=== PATIENT | male | born 1960 | race Caucasian/White ===

== ENCOUNTER 2021-07-27 06:38 | Day surgery (SDC) | payer MEDICARE, MEDICAID ==
[2021-07-27] MEDS ORDERED: Propofol 200 MG/20 ML SDV ONE (07:17)
[2021-07-27] MEDS ORDERED: fentaNYL 100 MCG/2 ML SDV ONE (07:17)
[2021-07-27] MEDS ORDERED: Midazolam 1 MG/ML 2 ML SDV ONE (07:17)
[2021-07-27] MEDS ORDERED: Sodium Chloride 0.9% 1,000 ML IV SCH (09:45)
--- NOTE | 2021-07-27 13:55 | OR ---
DATE OF PROCEDURE: 07/27/2021 SURGEON: Alpesh Cha MD PROCEDURE: Colonoscopy. FINDINGS: 1. Sigmoid colon polyp approximately 1 cm, completely removed using hot snare wire device. 2. Sigmoid colon polyp #2, approximately 1 cm, completely removed using endoscopic mucosal resection. 3. Diverticulosis, mild, mostly limited to sigmoid colon without evidence of diverticulitis or bleeding. COMPLICATION: None. WASH DRILLER HELPER: None. ANESTHESIA: MAC. PREOPERATIVE DIAGNOSIS: Screening colonoscopy. POSTOPERATIVE DIAGNOSIS: Screening colonoscopy. RISKS: Risks, benefits, alternatives, and limitations including, but not limited to infection, bleeding, perforation, false positives, false negatives were explained to the patient and he wished to proceed. PROCEDURE IN DETAIL: The patient was placed in left lateral decubitus position. Digital rectal exam was performed without abnormality. Scope was introduced and advanced atraumatically to the appendiceal orifice. A photo was taken of this. Scope was brought back to the ascending, transverse, descending colon, and retroflexed. No evidence of old or new blood. The patient did have some diverticulosis that was described as mild and without evidence of diverticulitis or bleeding. The first sigmoid colon polyp was identified and completely removed using hot snare wire device. No abnormal bleeding was noted after this. The second was elevated using classic EMR techniques including injection with normal saline in all 4 quadrants with subsequent hot wire excision. No abnormalities on retroflexion. Greater than 8 minutes was spent removing the scope. The prep was acceptable, approximately 90% of the luminal surface could be seen. The patient tolerated the procedure well. Alpesh Cha MD /[id number]
== END 2021-07-27 09:40 | disposition other institution (70) ==
LOC: JP.SDS 06:38
PROVIDERS: ATTEND Surgery
DX: Z12.11 Encounter for screening for malignant neoplasm of colon (principal); D12.5 Benign neoplasm of sigmoid colon; K57.30 Diverticulosis of large intestine without perforation or abscess without bleeding; I50.9 Heart failure, unspecified; N18.9 Chronic kidney disease, unspecified; E11.22 Type 2 diabetes mellitus with diabetic chronic kidney disease
CPT/HCPCS: J2250; J2704; J3010; J7030

== ENCOUNTER 2022-02-12 15:32 | Emergency (ER) | payer MEDICARE, MEDICAID ==
[2022-02-12] MEDS ORDERED: Sodium Chloride 0.9% 500 ML IV SCH (16:30)
[2022-02-12 16:59] LABS: TROPONIN I HIGH SENSITIVITY 10.6 pg/mL (<=60.3)
== END 2022-02-12 17:19 ==
LOC: JP.ED 15:32
DX: R53.1 Weakness (principal); E11.42 Type 2 diabetes mellitus with diabetic polyneuropathy; E11.649 Type 2 diabetes mellitus with hypoglycemia without coma; E11.22 Type 2 diabetes mellitus with diabetic chronic kidney disease; N18.4 Chronic kidney disease, stage 4 (severe); E86.0 Dehydration; E78.00 Pure hypercholesterolemia, unspecified; K21.9 Gastro-esophageal reflux disease without esophagitis; Z88.8 Allergy status to other drugs, medicaments and biological substances; Z91.048 Other nonmedicinal substance allergy status; Z79.899 Other long term (current) drug therapy
CPT/HCPCS: 36415; 80048; 84484; 85027; 99285; J7030; 99283

== ENCOUNTER 2022-02-22 14:30 | Emergency (ER) | payer MEDICARE, MEDICAID | END 2022-02-22 15:48 | LOC: JP.ED 14:30 | DX: I13.0 Hypertensive heart and chronic kidney disease with heart failure and stage 1 through stage 4 chronic kidney disease, or unspecified chronic kidney disease (principal); E78.00 Pure hypercholesterolemia, unspecified; K21.9 Gastro-esophageal reflux disease without esophagitis; I50.9 Heart failure, unspecified; E11.22 Type 2 diabetes mellitus with diabetic chronic kidney disease; N18.4 Chronic kidney disease, stage 4 (severe); D63.1 Anemia in chronic kidney disease; E66.9 Obesity, unspecified; Z68.30 Body mass index [BMI] 30.0-30.9, adult; Z91.048 Other nonmedicinal substance allergy status; Z88.8 Allergy status to other drugs, medicaments and biological substances; Z79.899 Other long term (current) drug therapy | CPT/HCPCS: 99282; 99285 ==

== ENCOUNTER 2022-02-23 08:48 | Inpatient (IN) | payer OTHER, MEDICARE, MEDICAID ==
[2022-02-23] MEDS ORDERED: Ketorolac 30 MG/ML SDV IM ONE (09:03)
[2022-02-23] MEDS ORDERED: HYDROmorphone 1 MG/ML Syringe IM ONE (09:49)
[2022-02-23] MEDS ORDERED: Sodium Chloride 0.9% 10 ML Syringe FLUSH PRN ×2 (10:58→13:46)
[2022-02-23] MEDS ORDERED: HYDROmorphone 0.5 MG/0.5 ML Syringe IVPUSH ONE (12:04)
[2022-02-23] MEDS ORDERED: Midazolam 1 MG/ML 2 ML SDV ONE (13:18)
[2022-02-23] MEDS ORDERED: fentaNYL 100 MCG/2 ML SDV ONE (13:18)
[2022-02-23] MEDS ORDERED: Propofol 200 MG/20 ML SDV ONE ×2 (13:18→13:30)
[2022-02-23] MEDS ORDERED: DIVALPROEX SODIUM 500 MG PO SCH (13:46)
[2022-02-23] MEDS ORDERED: Glucose Gel 15 GM in 37.5 GM Tube PO PRN (13:46)
[2022-02-23] MEDS ORDERED: Non-Formulary Medication 1 Each (Olanzapine [Olanzapine] 10 MG Tablet) PO PRN (13:46)
[2022-02-23] MEDS ORDERED: 50% Dextrose in Water 50 ML Syringe IV PRN (13:46)
[2022-02-23] MEDS ORDERED: Ondansetron 4 MG/2 ML SDV IV PRN (13:46)
[2022-02-23] MEDS ORDERED: Acetaminophen 325 MG Tab PO PRN (13:46)
[2022-02-23] MEDS ORDERED: OLANZapine 5 MG Tab PO PRN (14:54)
[2022-02-23] MEDS: Sodium Chloride 0.9% 1,000 ML IV SCH (15:15)
[2022-02-23] MEDS: HYDROmorphone 0.5 MG/0.5 ML Syringe IVPUSH PRN (15:17)
[2022-02-23] MEDS: Sodium Bicarbonate 650 MG Tab PO SCH ×2 (15:31→20:26)
[2022-02-23] MEDS ORDERED: Bupivacaine 0.5% 30 ML SDV ONE (16:35)
[2022-02-23] MEDS ORDERED: ceFAZolin 1 GM Vial ONE (17:28)
[2022-02-23] MEDS ORDERED: Sodium Chloride 0.9% 500 ML IV ONE (18:52)
[2022-02-23] MEDS: Topiramate 25 MG Tab PO SCH (20:25)
[2022-02-23] MEDS: OLANZapine 5 MG Tab PO SCH (20:26)
[2022-02-23] MEDS: atorvaSTATin 20 MG Tab PO SCH (20:26)
[2022-02-23] MEDS: Melatonin 3 MG Tab PO SCH (20:27)
[2022-02-23] MEDS: Acetaminophen 325 MG Tab PO SCH (20:32)
[2022-02-23] MEDS: Divalproex Sodium 250 MG Tab.ER PO SCH (20:33)
[2022-02-23] MEDS: traMADol 50 MG Tab PO PRN (20:33)
[2022-02-23] MEDS: Lidocaine 5% 700 MG Patch TOP SCH (20:34)
[2022-02-23] MEDS ORDERED: TOPIRAMATE 50 MG PO SCH (21:00)
[2022-02-23] MEDS ORDERED: Non-Formulary Medication 1 Each (Atorvastatin [Lipitor] 80 MG Tablet) PO SCH (21:00)
[2022-02-23] MEDS ORDERED: Non-Formulary Medication 1 Each (Melatonin [Melatonin] 10 MG Cap) PO SCH (21:00)
[2022-02-23] MEDS ORDERED: Non-Formulary Medication 1 Each (Olanzapine [Olanzapine] 15 MG Tablet) PO SCH (21:00)
[2022-02-23] MEDS: Insulin Lispro 100 Unit/ML 3 ML KwikPen SUBCUT SCH (22:31)
[2022-02-24] MEDS ORDERED: ceFAZolin 1 GM in Sodium Chloride 0.9% 50 ML IV SCH (01:00)
[2022-02-24] MEDS: Acetaminophen 325 MG Tab PO SCH ×4 (01:46→21:01)
[2022-02-24] MEDS: Sodium Chloride 0.9% 1,000 ML IV SCH (02:25)
[2022-02-24] MEDS: oxyCODONE 5 MG Tab PO PRN ×3 (07:32→21:09)
[2022-02-24] MEDS: Insulin Lispro 100 Unit/ML 3 ML KwikPen SUBCUT SCH ×4 (07:54→21:00)
[2022-02-24] MEDS: Docusate Sodium 100 MG Cap PO SCH (08:21)
[2022-02-24] MEDS: Citalopram 10 MG Tab PO SCH (08:21)
[2022-02-24] MEDS: Pantoprazole 40 MG Tab.CR PO SCH (08:21)
[2022-02-24] MEDS: Topiramate 25 MG Tab PO SCH ×2 (08:22→21:02)
[2022-02-24] MEDS: Magnesium Oxide 400 MG Tab PO SCH (08:22)
[2022-02-24] MEDS: Divalproex Sodium 250 MG Tab.ER PO SCH ×2 (08:22→21:01)
[2022-02-24] MEDS: Finasteride 5 MG Tab PO SCH (08:22)
[2022-02-24] MEDS: Sodium Bicarbonate 650 MG Tab PO SCH ×3 (08:22→21:03)
[2022-02-24] MEDS: OLANZapine 5 MG Tab PO SCH ×2 (08:23→21:04)
[2022-02-24] MEDS: Tamsulosin 0.4 MG Cap.ER PO SCH (08:26)
[2022-02-24] MEDS: ceFAZolin 1 GM in Premix Bag 1 BAG IV SCH ×2 (08:28→17:11)
[2022-02-24] MEDS ORDERED: Pneumococcal Polyvalent-23 Vaccine 0.5 ML SDV IM ONE (09:00)
[2022-02-24] MEDS ORDERED: Non-Formulary Medication 1 Each (Omeprazole [Omeprazole] 40 MG Cap.Cr) PO SCH (09:00)
[2022-02-24] MEDS ORDERED: Non-Formulary Medication 1 Each (Magnesium Oxide [Magnesium Oxide] 420 MG Tablet) PO SCH (09:00)
[2022-02-24] MEDS: Enoxaparin 30 MG/0.3 ML Syringe SUBCUT SCH (14:24)
[2022-02-24] MEDS: Nozin Nasal Sanitizer NASBOTH SCH ×2 (15:44→21:01)
[2022-02-24] MEDS: atorvaSTATin 20 MG Tab PO SCH (21:02)
[2022-02-24] MEDS: Melatonin 3 MG Tab PO SCH (21:02)
[2022-02-24] MEDS: Lidocaine 5% 700 MG Patch TOP SCH (21:05)
[2022-02-25] MEDS: Acetaminophen 325 MG Tab PO SCH ×4 (01:08→20:11)
[2022-02-25] MEDS: oxyCODONE 5 MG Tab PO PRN ×3 (01:09→17:36)
[2022-02-25] MEDS: Sodium Chloride 0.9% 1,000 ML IV SCH (04:22)
[2022-02-25] MEDS ORDERED: Pneumococcal Polyvalent-23 Vaccine 0.5 ML SDV IM ONE (09:00)
[2022-02-25] MEDS: OLANZapine 5 MG Tab PO SCH ×2 (09:31→20:09)
[2022-02-25] MEDS: Pantoprazole 40 MG Tab.CR PO SCH (09:32)
[2022-02-25] MEDS: Citalopram 10 MG Tab PO SCH (09:32)
[2022-02-25] MEDS: Divalproex Sodium 250 MG Tab.ER PO SCH ×2 (09:32→20:11)
[2022-02-25] MEDS: Topiramate 25 MG Tab PO SCH ×2 (09:32→20:10)
[2022-02-25] MEDS: Sodium Bicarbonate 650 MG Tab PO SCH ×3 (09:32→20:11)
[2022-02-25] MEDS: Docusate Sodium 100 MG Cap PO SCH (09:32)
[2022-02-25] MEDS: Tamsulosin 0.4 MG Cap.ER PO SCH (09:32)
[2022-02-25] MEDS: Magnesium Oxide 400 MG Tab PO SCH (09:32)
[2022-02-25] MEDS: Finasteride 5 MG Tab PO SCH (09:32)
[2022-02-25] MEDS: Nozin Nasal Sanitizer NASBOTH SCH ×2 (09:33→20:11)
[2022-02-25] MEDS: Insulin Lispro 100 Unit/ML 3 ML KwikPen SUBCUT SCH ×4 (09:33→21:19)
[2022-02-25] MEDS: Enoxaparin 30 MG/0.3 ML Syringe SUBCUT SCH (13:40)
[2022-02-25] MEDS: Polyethylene Glycol 3350 Powder 17 GM Packet PO PRN (17:35)
[2022-02-25] MEDS: traMADol 50 MG Tab PO PRN (20:09)
[2022-02-25] MEDS: Melatonin 3 MG Tab PO SCH (20:10)
[2022-02-25] MEDS: atorvaSTATin 20 MG Tab PO SCH (20:10)
[2022-02-25] MEDS: Lidocaine 5% 700 MG Patch TOP SCH (20:12)
[2022-02-26] MEDS: Acetaminophen 325 MG Tab PO SCH ×4 (02:11→20:16)
[2022-02-26] MEDS: oxyCODONE 5 MG Tab PO PRN ×3 (07:25→19:42)
[2022-02-26] MEDS: Pantoprazole 40 MG Tab.CR PO SCH (07:25)
[2022-02-26] MEDS: Insulin Lispro 100 Unit/ML 3 ML KwikPen SUBCUT SCH ×4 (08:43→21:37)
[2022-02-26] MEDS: Citalopram 10 MG Tab PO SCH (10:00)
[2022-02-26] MEDS: Nozin Nasal Sanitizer NASBOTH SCH ×2 (10:01→20:16)
[2022-02-26] MEDS: Docusate Sodium 100 MG Cap PO SCH (10:02)
[2022-02-26] MEDS: Tamsulosin 0.4 MG Cap.ER PO SCH (10:03)
[2022-02-26] MEDS: Polyethylene Glycol 3350 Powder 17 GM Packet PO PRN (10:03)
[2022-02-26] MEDS: Magnesium Oxide 400 MG Tab PO SCH (10:03)
[2022-02-26] MEDS: Divalproex Sodium 250 MG Tab.ER PO SCH ×2 (10:03→20:17)
[2022-02-26] MEDS: OLANZapine 5 MG Tab PO SCH ×2 (10:04→20:19)
[2022-02-26] MEDS: Sodium Bicarbonate 650 MG Tab PO SCH ×3 (10:04→20:19)
[2022-02-26] MEDS: Finasteride 5 MG Tab PO SCH (10:04)
[2022-02-26] MEDS: Topiramate 25 MG Tab PO SCH ×2 (10:04→20:19)
[2022-02-26] MEDS: Enoxaparin 30 MG/0.3 ML Syringe SUBCUT SCH (13:39)
[2022-02-26] MEDS: Lidocaine 5% 700 MG Patch TOP SCH (20:17)
[2022-02-26] MEDS: atorvaSTATin 20 MG Tab PO SCH (20:18)
[2022-02-26] MEDS: Melatonin 3 MG Tab PO SCH (20:19)
[2022-02-27] MEDS: Acetaminophen 325 MG Tab PO SCH ×4 (01:51→20:13)
[2022-02-27] MEDS: Insulin Lispro 100 Unit/ML 3 ML KwikPen SUBCUT SCH ×4 (07:48→21:27)
[2022-02-27] MEDS: oxyCODONE 5 MG Tab PO PRN ×3 (07:49→20:17)
[2022-02-27] MEDS: Pantoprazole 40 MG Tab.CR PO SCH (07:49)
[2022-02-27] MEDS: Tamsulosin 0.4 MG Cap.ER PO SCH (08:44)
[2022-02-27] MEDS: Finasteride 5 MG Tab PO SCH (08:44)
[2022-02-27] MEDS: Divalproex Sodium 250 MG Tab.ER PO SCH ×2 (08:45→20:12)
[2022-02-27] MEDS: Topiramate 25 MG Tab PO SCH ×2 (08:45→20:12)
[2022-02-27] MEDS: Citalopram 10 MG Tab PO SCH (08:45)
[2022-02-27] MEDS: OLANZapine 5 MG Tab PO SCH ×2 (08:45→20:13)
[2022-02-27] MEDS: Magnesium Oxide 400 MG Tab PO SCH (08:45)
[2022-02-27] MEDS: Sodium Bicarbonate 650 MG Tab PO SCH ×3 (08:45→20:13)
[2022-02-27] MEDS: Nozin Nasal Sanitizer NASBOTH SCH ×2 (08:46→20:12)
[2022-02-27] MEDS: Docusate Sodium 100 MG Cap PO SCH (08:57)
[2022-02-27] MEDS ORDERED: Bisacodyl 10 MG Supp RECTAL PRN (09:06)
[2022-02-27] MEDS: Enoxaparin 30 MG/0.3 ML Syringe SUBCUT SCH (12:06)
[2022-02-27] MEDS: HYDROmorphone 0.5 MG/0.5 ML Syringe IVPUSH PRN (14:21)
[2022-02-27] MEDS: Lidocaine 5% 700 MG Patch TOP SCH (20:11)
[2022-02-27] MEDS: atorvaSTATin 20 MG Tab PO SCH (20:11)
[2022-02-27] MEDS: Melatonin 3 MG Tab PO SCH (20:12)
[2022-02-28] MEDS: Acetaminophen 325 MG Tab PO SCH ×4 (02:13→19:08)
[2022-02-28] MEDS: Insulin Lispro 100 Unit/ML 3 ML KwikPen SUBCUT SCH ×4 (07:59→21:06)
[2022-02-28] MEDS: Topiramate 25 MG Tab PO SCH ×2 (08:04→21:08)
[2022-02-28] MEDS: oxyCODONE 5 MG Tab PO PRN ×3 (08:04→19:08)
[2022-02-28] MEDS: OLANZapine 5 MG Tab PO SCH ×2 (08:04→21:07)
[2022-02-28] MEDS: Citalopram 10 MG Tab PO SCH (08:05)
[2022-02-28] MEDS: Finasteride 5 MG Tab PO SCH (08:05)
[2022-02-28] MEDS: Docusate Sodium 100 MG Cap PO SCH (08:05)
[2022-02-28] MEDS: Tamsulosin 0.4 MG Cap.ER PO SCH (08:05)
[2022-02-28] MEDS: Pantoprazole 40 MG Tab.CR PO SCH (08:05)
[2022-02-28] MEDS: Divalproex Sodium 250 MG Tab.ER PO SCH ×2 (08:05→21:08)
[2022-02-28] MEDS: Magnesium Oxide 400 MG Tab PO SCH (08:05)
[2022-02-28] MEDS: Sodium Bicarbonate 650 MG Tab PO SCH ×3 (08:06→21:08)
[2022-02-28] MEDS: Nozin Nasal Sanitizer NASBOTH SCH ×2 (08:06→21:08)
[2022-02-28] MEDS: Enoxaparin 30 MG/0.3 ML Syringe SUBCUT SCH (12:15)
[2022-02-28] MEDS: Polyethylene Glycol 3350 Powder 17 GM Packet PO PRN (14:15)
[2022-02-28] MEDS: atorvaSTATin 20 MG Tab PO SCH (21:09)
[2022-02-28] MEDS: Melatonin 3 MG Tab PO SCH (21:09)
[2022-02-28] MEDS: Lidocaine 5% 700 MG Patch TOP SCH (21:09)
[2022-03-01] MEDS: Acetaminophen 325 MG Tab PO SCH ×3 (02:54→13:26)
[2022-03-01] MEDS: Polyethylene Glycol 3350 Powder 17 GM Packet PO PRN (07:24)
[2022-03-01] MEDS: oxyCODONE 5 MG Tab PO PRN ×3 (07:26→15:25)
[2022-03-01] MEDS: Pantoprazole 40 MG Tab.CR PO SCH (07:39)
[2022-03-01] MEDS: Insulin Lispro 100 Unit/ML 3 ML KwikPen SUBCUT SCH ×2 (07:41→11:21)
[2022-03-01] MEDS: Divalproex Sodium 250 MG Tab.ER PO SCH (08:06)
[2022-03-01] MEDS: OLANZapine 5 MG Tab PO SCH (08:06)
[2022-03-01] MEDS: Tamsulosin 0.4 MG Cap.ER PO SCH (08:06)
[2022-03-01] MEDS: Topiramate 25 MG Tab PO SCH (08:06)
[2022-03-01] MEDS: Citalopram 10 MG Tab PO SCH (08:06)
[2022-03-01] MEDS: Nozin Nasal Sanitizer NASBOTH SCH (08:06)
[2022-03-01] MEDS: Magnesium Oxide 400 MG Tab PO SCH (08:07)
[2022-03-01] MEDS: Finasteride 5 MG Tab PO SCH (08:07)
[2022-03-01] MEDS: Sodium Bicarbonate 650 MG Tab PO SCH ×2 (08:07→13:26)
[2022-03-01] MEDS: Docusate Sodium 100 MG Cap PO SCH (08:07)
[2022-03-01] MEDS: Enoxaparin 30 MG/0.3 ML Syringe SUBCUT SCH (13:26)
== END 2022-03-01 15:40 | DRG 522 ==
LOC: JP.ED 08:48 → JP.MS 12:32
PROVIDERS: ADMIT Hospitalist; ATTEND Hospitalist
PROC: 0SRR0JZ Replacement of Right Hip Joint, Femoral Surface with Synthetic Substitute, Open Approach (ICD-10-PCS; principal; 2022-02-23)
DX: S72.001A Fracture of unspecified part of neck of right femur, initial encounter for closed fracture (principal); N18.4 Chronic kidney disease, stage 4 (severe); D62 Acute posthemorrhagic anemia; K21.9 Gastro-esophageal reflux disease without esophagitis; I50.9 Heart failure, unspecified; E78.00 Pure hypercholesterolemia, unspecified; G47.30 Sleep apnea, unspecified; E11.22 Type 2 diabetes mellitus with diabetic chronic kidney disease; E11.40 Type 2 diabetes mellitus with diabetic neuropathy, unspecified; Z20.822 Contact with and (suspected) exposure to COVID-19; G89.29 Other chronic pain; M25.512 Pain in left shoulder; F20.9 Schizophrenia, unspecified; E66.9 Obesity, unspecified; V48.4XXA Person boarding or alighting a car injured in noncollision transport accident, initial encounter; Z86.16 Personal history of COVID-19; Z88.8 Allergy status to other drugs, medicaments and biological substances; Z79.84 Long term (current) use of oral hypoglycemic drugs; Z79.899 Other long term (current) drug therapy; Z68.36 Body mass index [BMI] 36.0-36.9, adult
CPT/HCPCS: 27236; 36415; 36430; 72170; 72170-26; 73502-26-RT; 73502-RT; 80048; 80053; 82947; 85018; 85025; 85027; 86850; 86900; 86901; 86920; 86922; 90732; 96372; 97110-GP; 97162-GP; 97530-GP; 97535-GP; 99283; 99285-25; A9270-GY; C1776; G0009; J0690; J1170; J1650; J1815; J1885; J2250; J2704; J3010; J3490; J7030; P9016; U0002

== ENCOUNTER 2022-06-05 07:34 | Emergency (ER) | payer OTHER, MEDICARE, MEDICAID | END 2022-06-05 09:57 | disposition home or self-care (01) | LOC: JP.ED 07:34 | DX: S70.02XA Contusion of left hip, initial encounter (principal); I50.9 Heart failure, unspecified; E66.9 Obesity, unspecified; Z68.33 Body mass index [BMI] 33.0-33.9, adult; Z88.8 Allergy status to other drugs, medicaments and biological substances; Z79.899 Other long term (current) drug therapy; Z86.16 Personal history of COVID-19; W05.0XXA Fall from non-moving wheelchair, initial encounter | CPT/HCPCS: 73502-26-LT; 73502-LT; 99282; 99283 ==

== ENCOUNTER 2022-06-19 15:27 | Emergency (ER) | payer MEDICARE, MEDICAID | END 2022-06-19 17:33 | disposition home or self-care (01) | LOC: JP.ED 15:27 | DX: S70.02XA Contusion of left hip, initial encounter (principal); E78.00 Pure hypercholesterolemia, unspecified; K21.9 Gastro-esophageal reflux disease without esophagitis; E11.22 Type 2 diabetes mellitus with diabetic chronic kidney disease; N18.4 Chronic kidney disease, stage 4 (severe); E66.9 Obesity, unspecified; Z68.33 Body mass index [BMI] 33.0-33.9, adult; Z88.8 Allergy status to other drugs, medicaments and biological substances; Z79.899 Other long term (current) drug therapy; W19.XXXA Unspecified fall, initial encounter | CPT/HCPCS: 99283 ==

== ENCOUNTER 2022-06-19 23:21 | Emergency (ER) | payer OTHER, MEDICAID ==
[2022-06-20] MEDS ORDERED: Acetaminophen/HYDROcodone 325-5 MG Tab PO ONE (00:21)
[2022-06-20] MEDS ORDERED: fentaNYL 100 MCG/2 ML SDV IM ONE (00:27)
== END 2022-06-20 01:46 | disposition home or self-care (01) ==
LOC: JP.ED 23:21
DX: S70.01XA Contusion of right hip, initial encounter (principal); E11.40 Type 2 diabetes mellitus with diabetic neuropathy, unspecified; E66.9 Obesity, unspecified; Z68.33 Body mass index [BMI] 33.0-33.9, adult; Z88.8 Allergy status to other drugs, medicaments and biological substances; Z79.899 Other long term (current) drug therapy; Z86.16 Personal history of COVID-19; W19.XXXA Unspecified fall, initial encounter
CPT/HCPCS: 73502; 96372; 99284; J3010

== ENCOUNTER 2022-06-28 15:48 | Emergency (ER) | payer MEDICARE, MEDICAID | END 2022-06-28 20:56 | disposition home or self-care (01) | LOC: JP.ED 15:48 | DX: F20.9 Schizophrenia, unspecified (principal); E11.22 Type 2 diabetes mellitus with diabetic chronic kidney disease; N18.32 Chronic kidney disease, stage 3b; N39.0 Urinary tract infection, site not specified; D64.9 Anemia, unspecified; K21.9 Gastro-esophageal reflux disease without esophagitis; E66.9 Obesity, unspecified; Z68.34 Body mass index [BMI] 34.0-34.9, adult; Z88.8 Allergy status to other drugs, medicaments and biological substances; Z79.899 Other long term (current) drug therapy; Z86.16 Personal history of COVID-19 | CPT/HCPCS: 36415; 80048; 82947; 85025; 99283 ==

== ENCOUNTER 2022-07-04 22:41 | Emergency (ER) | payer MEDICARE, MEDICAID ==
[2022-07-04] MEDS ORDERED: Ibuprofen 600 MG Tab PO ONE (23:28)
== END 2022-07-05 01:11 | disposition home or self-care (01) ==
LOC: JP.ED 22:41
DX: S70.01XA Contusion of right hip, initial encounter (principal); I50.9 Heart failure, unspecified; K21.9 Gastro-esophageal reflux disease without esophagitis; E11.9 Type 2 diabetes mellitus without complications; E66.9 Obesity, unspecified; Z88.8 Allergy status to other drugs, medicaments and biological substances; Z79.899 Other long term (current) drug therapy; Z86.16 Personal history of COVID-19; W07.XXXA Fall from chair, initial encounter
CPT/HCPCS: 73502; 99283; A9270

== ENCOUNTER 2022-09-17 06:25 | Day surgery (SDC) | payer MEDICARE, MEDICAID ==
[2022-09-17] MEDS ORDERED: Lactated Ringers 1,000 ML IV SCH (06:50)
[2022-09-17] MEDS ORDERED: Propofol 200 MG/20 ML SDV ONE (07:09)
[2022-09-17] MEDS ORDERED: fentaNYL 50 MCG/ML SDV ONE (07:09)
== END 2022-09-17 09:30 | disposition home or self-care (01) ==
LOC: JP.SDS 06:25
PROVIDERS: ATTEND Student in an Organized Health Care Education/Training Program
DX: K29.50 Unspecified chronic gastritis without bleeding (principal); K20.90 Esophagitis, unspecified without bleeding; D50.9 Iron deficiency anemia, unspecified; F20.9 Schizophrenia, unspecified; E11.9 Type 2 diabetes mellitus without complications; Z88.7 Allergy status to serum and vaccine; Z79.899 Other long term (current) drug therapy; Z91.048 Other nonmedicinal substance allergy status; Z88.8 Allergy status to other drugs, medicaments and biological substances
CPT/HCPCS: 43239; 87081; 88305; J2704; J3010; J7120

== ENCOUNTER 2024-05-19 18:42 | Emergency (ER) | payer MEDICARE, MEDICAID ==
[2024-05-19 19:42] LABS: APPEARANCE,URINE CLEAR (CLEAR); BILIRUBIN,URINE NEGATIVE (NEGATIVE); COLOR,URINE YELLOW (YELLOW); GLUCOSE,URINE NEGATIVE (NEGATIVE); KETONES,URINE NEGATIVE (NEGATIVE); LEUKOCYTE ESTERASE,URINE NEGATIVE (NEGATIVE); NITRITE,URINE NEGATIVE (NEGATIVE); OCCULT BLOOD,URINE TRACE-INTACT (NEGATIVE); PROTEIN,URINE NEGATIVE (NEGATIVE); UROBILINOGEN,URINE 0.2 EU/dL (0.2-1.0)
[2024-05-19 19:47] LABS: BACTERIA,URINE RARE; WBC,URINE NOT SEEN (0-5)
[2024-05-19 19:48] LABS: AMORPHOUS SEDIMENT,URINE NOT SEEN; EPITHELIAL CELLS,URINE RARE; MUCUS,URINE NOT SEEN
== END 2024-05-19 20:14 | disposition home or self-care (01) ==
LOC: JP.ED 18:42
DX: N48.89 Other specified disorders of penis (principal); R30.0 Dysuria; I50.9 Heart failure, unspecified; E78.00 Pure hypercholesterolemia, unspecified; K21.9 Gastro-esophageal reflux disease without esophagitis; E11.40 Type 2 diabetes mellitus with diabetic neuropathy, unspecified; E66.9 Obesity, unspecified; Z86.16 Personal history of COVID-19; Z79.899 Other long term (current) drug therapy; Z79.51 Long term (current) use of inhaled steroids; Z88.8 Allergy status to other drugs, medicaments and biological substances; Z68.25 Body mass index [BMI] 25.0-25.9, adult
CPT/HCPCS: 81001; 87086; 99283; 99284

== ENCOUNTER 2024-07-25 19:40 | Inpatient (IN) | payer OTHER, MEDICARE, MEDICAID ==
[2024-07-25] MEDS: Acetaminophen/Codeine 120-12 MG/5 ML Soln 12.5 ML Cup PO ONE (22:23)
[2024-07-25 23:52] LABS: BASOPHILS ABSOLUTE AUTO 0.03 K/uL (0.00-0.10); BASOPHILS PERCENT AUTO 0.4 % (0.1-1.3); EOSINOPHILS ABSOLUTE AUTO 0.06 K/uL (0.00-0.40); EOSINOPHILS PERCENT AUTO 0.8 % (0.0-5.4); HEMATOCRIT 28.6 % (38.4-49.7); IMMATURE GRAN PERCENT AUTO 0.3 % (0.0-0.7); LYMPHOCYTES ABSOLUTE AUTO 1.25 K/uL (0.8-3.3); LYMPHOCYTES PERCENT AUTO 17.6 % (11.4-47.7); MEAN CORPUSCULAR VOLUME 88.5 fL (81.4-99.0); MONOCYTES PERCENT AUTO 8.5 % (3.3-12.6); NEUTROPHILS ABSOLUTE AUTO 5.14 K/uL (1.0-7.6); NEUTROPHILS PERCENT AUTO 72.4 % (40.0-78.1); PLATELET COUNT,PLT 157 K/uL (130-375); RED BLOOD CELL COUNT 3.23 M/uL (4.14-5.76); WHITE BLOOD CELL COUNT,WBC 7.1 K/uL (3.2-11.0)
[2024-07-25 23:53] LABS: IMMATURE GRAN ABSOLUTE AUTO 0.02 K/uL (0.00-0.23)
[2024-07-26 00:16] LABS: A/G RATIO 1.3 (1.2-2.2); ALANINE AMINOTRANSFERASE,ALT 16 U/L (12-78); ALBUMIN 3.7 g/dL (3.4-5.0); ALKALINE PHOSPHATASE 184 U/L (46-116); ANION GAP 8.9 mmol/L (5.0-14.0); ASPARTATE AMNIOTRANSFERASE,AST 24 U/L (15-37); BILIRUBIN TOTAL 0.4 mg/dL (0.2-1.0); BLOOD UREA NITROGEN,BUN 43 mg/dL (7-18); CALCIUM 8.3 mg/dL (8.5-10.1); CARBON DIOXIDE,CO2 28 mmol/L (21-32); CHLORIDE,CL 106 mmol/L (100-108); CREATININE 2.5 mg/dL (0.8-1.3); ESTIMATED GFR 28 mL/min (>60); GLUCOSE RANDOM 127 mg/dL (74-106); POTASSIUM,K 4.5 mmol/L (3.6-5.2); PROTEIN TOTAL,TP 6.6 g/dL (6.4-8.2); SODIUM,NA 143 mmol/L (140-148)
[2024-07-26] MEDS ORDERED: Sodium Chloride 0.9% 10 ML Syringe FLUSH PRN (00:23)
[2024-07-26] MEDS ORDERED: Ondansetron 4 MG/2 ML SDV IV PRN (01:37)
[2024-07-26] MEDS ORDERED: Acetaminophen 325 MG Tab PO PRN (01:37)
[2024-07-26] MEDS ORDERED: Ondansetron 4 MG Tab.DIS PO PRN (01:37)
[2024-07-26] MEDS: Sodium Chloride 0.9% 1,000 ML IV SCH (02:15)
[2024-07-26] MEDS: Pantoprazole 40 MG Vial IV SCH (02:16)
[2024-07-26] MEDS: HYDROmorphone 1 MG/ML Syringe IVPUSH PRN ×2 (02:22→05:50)
[2024-07-26] MEDS: HYDROmorphone 0.5 MG/0.5 ML Syringe IVPUSH ONE (03:38)
[2024-07-26 05:32] LABS: HEMATOCRIT 27.2 % (38.4-49.7); HEMOGLOBIN 9.4 g/dL (12.9-16.9); MEAN CORPUSCULAR HEMOGLOBIN 30.5 pg (31.6-35.5); MEAN CORPUSCULAR HGB CONC 34.6 g/dL (31.6-35.5); MEAN CORPUSCULAR VOLUME 88.3 fL (81.4-99.0); RED BLOOD CELL COUNT 3.08 M/uL (4.14-5.76); WHITE BLOOD CELL COUNT,WBC 5.2 K/uL (3.2-11.0)
[2024-07-26 05:51] LABS: CALCIUM 8.3 mg/dL (8.5-10.1); CREATININE 2.4 mg/dL (0.8-1.3); EST CRCL DRUG DOSING (CG) 29.69 mL/min; POTASSIUM,K 4.7 mmol/L (3.6-5.2)
[2024-07-26 05:52] LABS: ANION GAP 12.7 mmol/L (5.0-14.0)
[2024-07-26] MEDS: Lidocaine 2% Jelly 10 ML Urojet MUCMEM STA (14:00)
[2024-07-26] MEDS ORDERED: LORazepam 0.5 MG Tab PO PRN (16:39)
[2024-07-26] MEDS: Docusate Sodium 100 MG Cap PO SCH (17:52)
[2024-07-26] MEDS: Finasteride 5 MG Tab PO SCH (17:52)
[2024-07-26] MEDS: Pantoprazole 40 MG Tab.CR PO SCH (17:52)
[2024-07-26] MEDS: Tamsulosin 0.4 MG Cap.ER PO SCH (17:52)
[2024-07-26] MEDS ORDERED: Lidocaine 4% 1 each Patch TOP SCH (21:00)
[2024-07-26] MEDS ORDERED: Pantoprazole 40 MG Vial IV SCH (22:00)
[2024-07-26] MEDS: Sodium Bicarbonate 650 MG Tab PO SCH (22:10)
[2024-07-26] MEDS: ClonazePAM 0.5 MG Tab PO SCH (22:10)
[2024-07-26] MEDS: diphenhydrAMINE 25 MG Cap PO SCH (22:11)
[2024-07-26] MEDS: atorvaSTATin 20 MG Tab PO SCH (22:11)
[2024-07-26] MEDS ORDERED: Diclofenac Sodium 1% Gel 100 GM Tube TOP PRN (22:20)
[2024-07-26] MEDS: Lidocaine 4% 1 each Patch TOP SCH (22:25)
[2024-07-26] MEDS: Lidocaine 2% Jelly 10 ML Urojet MUCMEM ONE (23:41)
[2024-07-27] MEDS: Lactated Ringers 1,000 ML IV SCH (00:07)
[2024-07-27 06:08] LABS: BASOPHILS PERCENT AUTO 0.2 % (0.1-1.3); EOSINOPHILS ABSOLUTE AUTO 0.11 K/uL (0.00-0.40); EOSINOPHILS PERCENT AUTO 2.2 % (0.0-5.4); HEMATOCRIT 27.6 % (38.4-49.7); HEMOGLOBIN 9.4 g/dL (12.9-16.9); IMMATURE GRAN PERCENT AUTO 0.2 % (0.0-0.7); LYMPHOCYTES ABSOLUTE AUTO 1.12 K/uL (0.8-3.3); LYMPHOCYTES PERCENT AUTO 22.7 % (11.4-47.7); MEAN CORPUSCULAR HEMOGLOBIN 30.2 pg (31.6-35.5); MEAN CORPUSCULAR HGB CONC 34.1 g/dL (31.6-35.5); MEAN CORPUSCULAR VOLUME 88.7 fL (81.4-99.0); MONOCYTES ABSOLUTE AUTO 0.59 K/uL (0.20-0.90); NEUTROPHILS ABSOLUTE AUTO 3.09 K/uL (1.0-7.6); NEUTROPHILS PERCENT AUTO 62.7 % (40.0-78.1); PLATELET COUNT,PLT 138 K/uL (130-375); RED BLOOD CELL COUNT 3.11 M/uL (4.14-5.76); WHITE BLOOD CELL COUNT,WBC 4.9 K/uL (3.2-11.0)
[2024-07-27 06:10] LABS: BASOPHILS ABSOLUTE AUTO 0.01 K/uL (0.00-0.10); IMMATURE GRAN ABSOLUTE AUTO 0.01 K/uL (0.00-0.23)
[2024-07-27 06:28] LABS: ALANINE AMINOTRANSFERASE,ALT 12 U/L (12-78); ALBUMIN 3.1 g/dL (3.4-5.0); ALKALINE PHOSPHATASE 123 U/L (46-116); ASPARTATE AMNIOTRANSFERASE,AST 17 U/L (15-37); BILIRUBIN TOTAL 0.5 mg/dL (0.2-1.0); BLOOD UREA NITROGEN,BUN 34 mg/dL (7-18); CALCIUM 8.8 mg/dL (8.5-10.1); CARBON DIOXIDE,CO2 29 mmol/L (21-32); CHLORIDE,CL 111 mmol/L (100-108); EST CRCL DRUG DOSING (CG) 35.63 mL/min; ESTIMATED GFR 36 mL/min (>60); GLUCOSE RANDOM 132 mg/dL (74-106); POTASSIUM,K 4.5 mmol/L (3.6-5.2); PROTEIN TOTAL,TP 6.1 g/dL (6.4-8.2); SODIUM,NA 147 mmol/L (140-148)
[2024-07-27 06:45] LABS: ANION GAP 11.5 mmol/L (5.0-14.0)
[2024-07-27] MEDS: Nozin Nasal Sanitizer NASBOTH SCH (07:36)
[2024-07-27] MEDS ORDERED: ceFAZolin 2 GM in Premix Bag 1 BAG IV ONE (08:00)
[2024-07-27] MEDS ORDERED: fentaNYL 250 MCG/5 ML SDV ONE ×2 (08:58→10:00)
[2024-07-27] MEDS ORDERED: Ondansetron 4 MG/2 ML SDV ONE (08:58)
[2024-07-27] MEDS ORDERED: Glycopyrrolate 0.2 MG/ML 5 ML MDV ONE (08:58)
[2024-07-27] MEDS ORDERED: Propofol 200 MG/20 ML SDV ONE (08:58)
[2024-07-27] MEDS ORDERED: Rocuronium 50 MG/5 ML Vial ONE (08:58)
[2024-07-27] MEDS ORDERED: Neostigmine Methylsulfate 10 MG/10 ML MDV ONE (08:58)
[2024-07-27] MEDS ORDERED: Dexamethasone 4 MG/ML SDV ONE (08:58)
[2024-07-27] MEDS: ceFAZolin 2 GM in Premix Bag 1 BAG IV ONE (09:12)
[2024-07-27] MEDS ORDERED: Lactated Ringers 1,000 ML ONE (09:38)
[2024-07-27] MEDS: LIDOCAINE PATCH REMOVAL TOP SCH (09:50)
[2024-07-27] MEDS: Bupivacaine 0.5% 50 ML MDV ONE (10:18)
[2024-07-27] MEDS: Acetaminophen 500 MG Tab PO SCH (15:15)
[2024-07-27] MEDS: OLANZapine 5 MG Tab PO SCH (15:15)
[2024-07-27] MEDS: ceFAZolin 1 GM in Premix Bag 1 BAG IV SCH (15:52)
[2024-07-27] MEDS: oxyCODONE 5 MG Tab PO PRN (17:56)
[2024-07-27] MEDS: Haloperidol 5 MG Tab PO SCH (20:02)
[2024-07-27] MEDS: Melatonin 3 MG Tab PO PRN (21:07)
[2024-07-28 05:22] LABS: HEMATOCRIT 27.7 % (38.4-49.7); HEMOGLOBIN 9.7 g/dL (12.9-16.9); MEAN CORPUSCULAR HEMOGLOBIN 30.8 pg (31.6-35.5); MEAN CORPUSCULAR VOLUME 87.9 fL (81.4-99.0); RED BLOOD CELL COUNT 3.15 M/uL (4.14-5.76); WHITE BLOOD CELL COUNT,WBC 6.3 K/uL (3.2-11.0)
[2024-07-28 05:30] LABS: CALCIUM 8.8 mg/dL (8.5-10.1); CREATININE 2.1 mg/dL (0.8-1.3); EST CRCL DRUG DOSING (CG) 33.93 mL/min; POTASSIUM,K 4.8 mmol/L (3.6-5.2)
[2024-07-28 05:38] LABS: ANION GAP 13.8 mmol/L (5.0-14.0)
[2024-07-28] MEDS: traMADol 50 MG Tab PO PRN (08:47)
[2024-07-28] MEDS: Polyethylene Glycol 3350 Powder 17 GM Packet PO SCH (20:17)
[2024-07-29] MEDS: oxyCODONE 5 MG Tab PO PRN (01:16)
[2024-07-29] MEDS ORDERED: Sodium Phosphate,Monobasic/Sodium Phosphate,Dibasic Enema 133 ML Bottle RECTAL PRN (11:40)
[2024-07-29] MEDS: Bisacodyl 10 MG Supp RECTAL ONE (14:38)
[2024-07-29] MEDS: Polyethylene Glycol 3350 Powder 17 GM Packet PO ONE (14:39)
== END 2024-07-30 13:20 | DRG 493 ==
LOC: JP.ED 19:40 → JP.MS 07-26 00:24
PROVIDERS: ADMIT Registered Nurse; ATTEND Internal Medicine
PROC: 0T9B70Z Drainage of Bladder with Drainage Device, Via Natural or Artificial Opening (ICD-10-PCS; principal; 2024-07-26)
PROC: 0PSJ04Z Reposition Left Radius with Internal Fixation Device, Open Approach (ICD-10-PCS; 2024-07-27)
PROC: 0QSH04Z Reposition Left Tibia with Internal Fixation Device, Open Approach (ICD-10-PCS; 2024-07-27 09:00)
DX: S82.142A Displaced bicondylar fracture of left tibia, initial encounter for closed fracture (principal); S52.502A Unspecified fracture of the lower end of left radius, initial encounter for closed fracture; Z66 Do not resuscitate; E11.40 Type 2 diabetes mellitus with diabetic neuropathy, unspecified; E11.22 Type 2 diabetes mellitus with diabetic chronic kidney disease; E78.00 Pure hypercholesterolemia, unspecified; K21.9 Gastro-esophageal reflux disease without esophagitis; E66.9 Obesity, unspecified; I50.9 Heart failure, unspecified; H54.7 Unspecified visual loss; G47.30 Sleep apnea, unspecified; N18.32 Chronic kidney disease, stage 3b; F20.9 Schizophrenia, unspecified; D63.1 Anemia in chronic kidney disease; R33.9 Retention of urine, unspecified; R13.12 Dysphagia, oropharyngeal phase; G47.00 Insomnia, unspecified; Z88.8 Allergy status to other drugs, medicaments and biological substances; Z86.16 Personal history of COVID-19; Z79.899 Other long term (current) drug therapy; Z98.890 Other specified postprocedural states; V43.62XA Car passenger injured in collision with other type car in traffic accident, initial encounter
CPT/HCPCS: 01392-QZ; 36415; 51701; 73090-LT; 73110-26-LT; 73110-LT; 73560-LT; 73610-LT; 73700-LT; 76000; 76377; 80048; 80053; 82947; 85025; 85027; 97110-GP; 97161-GP; 97530-GP; 99223; 99231; 99232; 99238; 99285; A9270-GY; C1713; J0665; J0689; J0690; J1100; J1170; J1596; J2405; J2470; J2704; J2710; J3010; J3490; J7030; J7120

== ENCOUNTER 2024-11-22 17:39 | Emergency (ER) | payer MEDICARE, MEDICAID ==
[2024-11-22] MEDS: OLANZapine 5 MG Tab PO ONE (18:33)
[2024-11-22] MEDS: ClonazePAM 0.5 MG Tab PO ONE (18:34)
[2024-11-22] MEDS: Apixaban 5 MG Tab PO ONE (18:34)
== END 2024-11-22 18:39 ==
LOC: JP.ED 17:39
DX: Z76.0 Encounter for issue of repeat prescription (principal); E78.00 Pure hypercholesterolemia, unspecified; K21.9 Gastro-esophageal reflux disease without esophagitis; E11.42 Type 2 diabetes mellitus with diabetic polyneuropathy; E11.22 Type 2 diabetes mellitus with diabetic chronic kidney disease; N18.30 Chronic kidney disease, stage 3 unspecified; E66.9 Obesity, unspecified; Z68.20 Body mass index [BMI] 20.0-20.9, adult; Z86.16 Personal history of COVID-19; Z90.89 Acquired absence of other organs; Z88.8 Allergy status to other drugs, medicaments and biological substances; Z79.01 Long term (current) use of anticoagulants; Z79.899 Other long term (current) drug therapy
CPT/HCPCS: 99281; A9270

== ENCOUNTER 2024-12-18 08:16 | Inpatient (IN) | payer MEDICARE, MEDICAID ==
[2024-12-18 09:14] LABS: BASOPHILS ABSOLUTE AUTO 0.05 K/uL (0.00-0.10); BASOPHILS PERCENT AUTO 0.3 % (0.1-1.3); EOSINOPHILS ABSOLUTE AUTO 0.03 K/uL (0.00-0.40); EOSINOPHILS PERCENT AUTO 0.2 % (0.0-5.4); HEMATOCRIT 34.1 % (38.4-49.7); IMMATURE GRAN PERCENT AUTO 0.5 % (0.0-0.7); LYMPHOCYTES ABSOLUTE AUTO 1.97 K/uL (0.8-3.3); MEAN CORPUSCULAR HEMOGLOBIN 28.6 pg (31.6-35.5); MEAN CORPUSCULAR HGB CONC 32.3 g/dL (31.6-35.5); MEAN CORPUSCULAR VOLUME 88.6 fL (81.4-99.0); MONOCYTES ABSOLUTE AUTO 0.89 K/uL (0.20-0.90); MONOCYTES PERCENT AUTO 4.5 % (3.3-12.6); NEUTROPHILS ABSOLUTE AUTO 16.74 K/uL (1.0-7.6); NEUTROPHILS PERCENT AUTO 84.5 % (40.0-78.1); PLATELET COUNT,PLT 242 K/uL (130-375); RED BLOOD CELL COUNT 3.85 M/uL (4.14-5.76); WHITE BLOOD CELL COUNT,WBC 19.8 K/uL (3.2-11.0)
[2024-12-18] MEDS: Sodium Chloride 0.9% 1,000 ML IV ONE ×2 (09:29→10:59)
[2024-12-18 09:30] LABS: APPEARANCE,URINE SLIGHTLY CLOUDY (CLEAR); BILIRUBIN,URINE NEGATIVE (NEGATIVE); COLOR,URINE YELLOW (YELLOW); GLUCOSE,URINE NEGATIVE (NEGATIVE); KETONES,URINE NEGATIVE (NEGATIVE); LEUKOCYTE ESTERASE,URINE LARGE (NEGATIVE); NITRITE,URINE NEGATIVE (NEGATIVE); OCCULT BLOOD,URINE SMALL (NEGATIVE); PH,URINE 8.5 (5.0-8.0); PROTEIN,URINE 100 mg/dL (NEGATIVE); UROBILINOGEN,URINE 0.2 EU/dL (0.2-1.0)
[2024-12-18] MEDS: Ondansetron 4 MG/2 ML SDV IVPUSH ONE (09:30)
[2024-12-18 09:35] LABS: A/G RATIO 0.8 (1.2-2.2); ALANINE AMINOTRANSFERASE,ALT 10 U/L (12-78); ALBUMIN 2.9 g/dL (3.4-5.0); ALKALINE PHOSPHATASE 84 U/L (46-116); ANION GAP 8.4 mmol/L (5.0-14.0); ASPARTATE AMNIOTRANSFERASE,AST 22 U/L (15-37); BILIRUBIN TOTAL 0.6 mg/dL (0.2-1.0); BLOOD UREA NITROGEN,BUN 69 mg/dL (7-18); C-REACTIVE PROTEIN 6.13 mg/dL (<0.50); CALCIUM 9.3 mg/dL (8.5-10.1); CARBON DIOXIDE,CO2 27 mmol/L (21-32); CHLORIDE,CL 108 mmol/L (100-108); CREATININE 1.7 mg/dL (0.8-1.3); EST CRCL DRUG DOSING (CG) 40.58 mL/min; ESTIMATED GFR 44 mL/min (>60); GLUCOSE RANDOM 135 mg/dL (74-106); POTASSIUM,K 4.1 mmol/L (3.6-5.2); PROTEIN TOTAL,TP 6.7 g/dL (6.4-8.2); SODIUM,NA 143 mmol/L (140-148)
[2024-12-18 09:38] LABS: RBC,URINE 0-5 (0-5)
[2024-12-18 09:39] LABS: AMORPHOUS SEDIMENT,URINE MODERATE; BACTERIA,URINE MODERATE; EPITHELIAL CELLS,URINE RARE; MUCUS,URINE NOT SEEN; WBC,URINE 20-30 (0-5)
[2024-12-18] MEDS: Levofloxacin/Dextrose 5%-Water 750 MG in Premix Bag 1 BAG IV ONE (10:20)
[2024-12-18 10:21] LABS: BASE EXCESS VENOUS 2.4 mm/L; BICARBONATE,VENOUS 25.5 mmol/L; CARBOXYHEMOGLOBIN 1.8 % (0.0-1.6); METHEMOGLOBIN 0.9 %; O2 SATURATION VENOUS 73.4; OXYHEMOGLOBIN 71.4 %; PCO2 VENOUS 35.3 mm/Hg; PH,VENOUS 7.472 (7.350-7.450); TOTAL HEMOGLOBIN 10.8 g/dL (13.5-18.0)
[2024-12-18 10:22] LABS: PO2 VENOUS 38.2 mm/Hg
[2024-12-18] MEDS: metroNIDAZOLE/Normal Saline 500 MG in Premix Bag 1 BAG IV ONE (10:38)
[2024-12-18] MEDS: Sodium Chloride 0.9% 10 ML Syringe FLUSH ONE (10:55)
[2024-12-18] MEDS: Sodium Chloride 0.9% 80 ML IV SCH (10:55)
[2024-12-18] MEDS: Iopamidol 755 Mg/ML 100 ML Bottle IV SCH (10:55)
[2024-12-18] MEDS: OLANZapine 5 MG Tab GTUBE ONE (12:35)
[2024-12-18] MEDS: ClonazePAM 0.5 MG Tab GTUBE ONE (12:36)
[2024-12-18] MEDS ORDERED: Magnesium Hydroxide 400 MG/5 ML Susp 30 ML Cup PO PRN (14:31)
[2024-12-18] MEDS ORDERED: Sennosides/Docusate Sodium 50-8.6 MG Tab PO PRN (14:31)
[2024-12-18] MEDS ORDERED: Ondansetron 4 MG/2 ML SDV IV PRN (14:31)
[2024-12-18] MEDS ORDERED: GABAPENTIN 250 MG/5 ML GTUBE PRN (14:31)
[2024-12-18] MEDS ORDERED: HYDROmorphone 1 MG/ML Syringe IVPUSH PRN (14:31)
[2024-12-18] MEDS ORDERED: Acetaminophen 325 MG Tab GTUBE PRN (14:31)
[2024-12-18] MEDS: Sodium Chloride 0.9% 1,000 ML IV SCH (15:07)
[2024-12-18] MEDS: Pantoprazole 40 MG Vial IV SCH (16:04)
[2024-12-18] MEDS: Lidocaine 2% Jelly 10 ML Urojet MUCMEM ONE (16:09)
[2024-12-18] MEDS: VERIFY SCOP PATCH TOP SCH (16:49)
[2024-12-18] MEDS: metroNIDAZOLE/Normal Saline 500 MG in Premix Bag 1 BAG IV SCH (18:12)
[2024-12-18] MEDS: Gabapentin 300 MG Cap GTUBE SCH (20:29)
[2024-12-18] MEDS: OLANZapine 5 MG Tab GTUBE SCH (20:30)
[2024-12-18] MEDS: Acetaminophen Soln 650 MG/20.3 ML UD Cup GTUBE PRN (20:30)
[2024-12-18] MEDS: ClonazePAM 0.5 MG Tab GTUBE SCH (20:30)
[2024-12-18] MEDS ORDERED: Non-Formulary Medication 1 Each (Clonazepam [Klonopin] 0.5 MG Tab.Dis) GTUBE SCH (21:00)
[2024-12-18] MEDS: HYDROmorphone 0.5 MG/0.5 ML Syringe IVPUSH PRN (21:56)
[2024-12-18] MEDS: Hypromellose 0.3% Ophth Soln 15 ML Bottle EYEBOTH PRN (21:59)
[2024-12-19 06:13] LABS: HEMATOCRIT 27.9 % (38.4-49.7); HEMOGLOBIN 8.6 g/dL (12.9-16.9); MEAN CORPUSCULAR HEMOGLOBIN 28.8 pg (31.6-35.5); MEAN CORPUSCULAR HGB CONC 30.8 g/dL (31.6-35.5); MEAN CORPUSCULAR VOLUME 93.3 fL (81.4-99.0); RED BLOOD CELL COUNT 2.99 M/uL (4.14-5.76); WHITE BLOOD CELL COUNT,WBC 10.6 K/uL (3.2-11.0)
[2024-12-19 06:30] LABS: CALCIUM 8.4 mg/dL (8.5-10.1); CREATININE 1.7 mg/dL (0.8-1.3); EST CRCL DRUG DOSING (CG) 41.91 mL/min; MAGNESIUM 1.6 mg/dL (1.8-2.4); POTASSIUM,K 4.1 mmol/L (3.6-5.2)
[2024-12-19 06:32] LABS: ANION GAP 11.1 mmol/L (5.0-14.0)
[2024-12-19] MEDS ORDERED: Magnesium Sulf/Wat 2 GM/50 mL 2 GM in Premix Bag 1 BAG IV SCH (08:30)
[2024-12-19] MEDS: Scopalamine 1mg/3day Transdermal Patch TRDERM SCH (08:54)
[2024-12-19] MEDS: Ciprofloxacin in D5W 400 MG in Premix Bag 1 BAG IV SCH (08:54)
[2024-12-19] MEDS ORDERED: Scopalamine 1mg/3day Transdermal Patch TRDERM SCH (09:00)
[2024-12-19] MEDS ORDERED: Non-Formulary Medication 1 Each (Olanzapine [Olanzapine] 10 MG Tablet) GTUBE SCH (09:00)
[2024-12-19] MEDS ORDERED: OLANZapine 5 MG Tab GTUBE SCH (09:00)
[2024-12-19] MEDS ORDERED: FLU (Fluad Triv) TS24-25 (65UP)/MF59C/PF 45 MCG/0.5 ML Syringe IM ONE (10:00)
[2024-12-19] MEDS: Magnesium Sulf/Wat 2 GM/50 mL 2 GM in Premix Bag 1 BAG IV SCH (11:05)
[2024-12-19] MEDS ORDERED: Benzocaine/Cetylpyridinium/Menthol Lozenge MUCMEM PRN (14:25)
[2024-12-19] MEDS: Ondansetron 4 MG Tab.DIS PO PRN (20:03)
[2024-12-20 04:41] LABS: HEMATOCRIT 28.2 % (38.4-49.7); HEMOGLOBIN 8.7 g/dL (12.9-16.9); MEAN CORPUSCULAR HEMOGLOBIN 28.5 pg (31.6-35.5); MEAN CORPUSCULAR HGB CONC 30.9 g/dL (31.6-35.5); MEAN CORPUSCULAR VOLUME 92.5 fL (81.4-99.0); RED BLOOD CELL COUNT 3.05 M/uL (4.14-5.76)
[2024-12-20 05:00] LABS: C-REACTIVE PROTEIN 3.29 mg/dL (<0.50); CALCIUM 8.3 mg/dL (8.5-10.1); CREATININE 1.8 mg/dL (0.8-1.3); EST CRCL DRUG DOSING (CG) 39.58 mL/min
[2024-12-20] MEDS: FLU (Fluad Triv) TS24-25 (65UP)/MF59C/PF 45 MCG/0.5 ML Syringe IM ONE (12:00)
[2024-12-20] MEDS: Ciprofloxacin 500 MG Tab PO ONE (12:00)
[2024-12-20] MEDS: metroNIDAZOLE 250 MG Tab PO ONE (12:00)
== END 2024-12-20 13:02 | disposition home or self-care (01) | DRG 690 ==
LOC: JP.ED 08:16 → UNDOADMIN 12:16 → JP.ICU 12:16 → JP.MS 12:16
PROVIDERS: ADMIT Internal Medicine; ATTEND Internal Medicine
PROC: 4A033R1 Measurement of Arterial Saturation, Peripheral, Percutaneous Approach (ICD-10-PCS; principal; 2024-12-18)
PROC: 3E02340 Introduction of Influenza Vaccine into Muscle, Percutaneous Approach (ICD-10-PCS; 2024-12-20)
DX: A41.9 Sepsis, unspecified organism (principal); R11.10 Vomiting, unspecified; N30.00 Acute cystitis without hematuria; N18.9 Chronic kidney disease, unspecified; D68.8 Other specified coagulation defects; I13.0 Hypertensive heart and chronic kidney disease with heart failure and stage 1 through stage 4 chronic kidney disease, or unspecified chronic kidney disease; K63.89 Other specified diseases of intestine; K52.9 Noninfective gastroenteritis and colitis, unspecified; H54.7 Unspecified visual loss; E78.00 Pure hypercholesterolemia, unspecified; Z68.22 Body mass index [BMI] 22.0-22.9, adult; I50.9 Heart failure, unspecified; G47.30 Sleep apnea, unspecified; K21.9 Gastro-esophageal reflux disease without esophagitis; E11.40 Type 2 diabetes mellitus with diabetic neuropathy, unspecified; E66.9 Obesity, unspecified; Z96.649 Presence of unspecified artificial hip joint; F15.90 Other stimulant use, unspecified, uncomplicated; F20.9 Schizophrenia, unspecified; N18.32 Chronic kidney disease, stage 3b; E11.22 Type 2 diabetes mellitus with diabetic chronic kidney disease; D63.1 Anemia in chronic kidney disease; Z79.01 Long term (current) use of anticoagulants; Z79.899 Other long term (current) drug therapy; Z88.8 Allergy status to other drugs, medicaments and biological substances; Z87.81 Personal history of (healed) traumatic fracture; Z86.16 Personal history of COVID-19; Z90.89 Acquired absence of other organs; Z98.890 Other specified postprocedural states; Z23 Encounter for immunization
CPT/HCPCS: 36415; 74174 ×2; 74176 ×2; 80053; 81001; 82803; 83605; 83690; 85025; 86140; 87040 ×2; 87086; 87428; 96361; 96365; 96366; 96368; 96375; 99285; J1836; J1956; J2405; Q9967; 51702; 80048; 83735; 85027; 87088; 87186; 90653; 97161-GP; 97530-GP; 99222; 99232; 99238; 99284; A9270-GY; G0008; J0744; J2470; J3475; J7030; Q0162

== ENCOUNTER 2025-01-08 00:59 | Emergency (ER) | payer MEDICARE, MEDICAID ==
[2025-01-08 01:51] LABS: BASOPHILS ABSOLUTE AUTO 0.03 K/uL (0.00-0.10); BASOPHILS PERCENT AUTO 0.7 % (0.1-1.3); EOSINOPHILS ABSOLUTE AUTO 0.12 K/uL (0.00-0.40); EOSINOPHILS PERCENT AUTO 2.7 % (0.0-5.4); HEMATOCRIT 26.7 % (38.4-49.7); HEMOGLOBIN 8.7 g/dL (12.9-16.9); IMMATURE GRAN PERCENT AUTO 0.2 % (0.0-0.7); LYMPHOCYTES ABSOLUTE AUTO 1.57 K/uL (0.8-3.3); LYMPHOCYTES PERCENT AUTO 35.9 % (11.4-47.7); MEAN CORPUSCULAR HEMOGLOBIN 28.6 pg (31.6-35.5); MEAN CORPUSCULAR HGB CONC 32.6 g/dL (31.6-35.5); MEAN CORPUSCULAR VOLUME 87.8 fL (81.4-99.0); MONOCYTES ABSOLUTE AUTO 0.44 K/uL (0.20-0.90); MONOCYTES PERCENT AUTO 10.1 % (3.3-12.6); NEUTROPHILS PERCENT AUTO 50.4 % (40.0-78.1); PLATELET COUNT,PLT 244 K/uL (130-375); RED BLOOD CELL COUNT 3.04 M/uL (4.14-5.76); WHITE BLOOD CELL COUNT,WBC 4.4 K/uL (3.2-11.0)
[2025-01-08 02:08] LABS: IMMATURE GRAN ABSOLUTE AUTO 0.01 K/uL (0.00-0.23)
[2025-01-08 02:11] LABS: A/G RATIO 0.9 (1.2-2.2); ALANINE AMINOTRANSFERASE,ALT 12 U/L (12-78); ALKALINE PHOSPHATASE 103 U/L (46-116); ANION GAP 10.1 mmol/L (5.0-14.0); ASPARTATE AMNIOTRANSFERASE,AST 20 U/L (15-37); BILIRUBIN TOTAL 0.5 mg/dL (0.2-1.0); BLOOD UREA NITROGEN,BUN 28 mg/dL (7-18); CARBON DIOXIDE,CO2 25 mmol/L (21-32); CHLORIDE,CL 107 mmol/L (100-108); CREATININE 1.6 mg/dL (0.8-1.3); EST CRCL DRUG DOSING (CG) 46.19 mL/min; ESTIMATED GFR 48 mL/min (>60); GLUCOSE RANDOM 89 mg/dL (74-106); POTASSIUM,K 4.5 mmol/L (3.6-5.2); PROTEIN TOTAL,TP 6.5 g/dL (6.4-8.2); SODIUM,NA 142 mmol/L (140-148)
[2025-01-08 02:18] LABS: APPEARANCE,URINE CLEAR (CLEAR); BILIRUBIN,URINE NEGATIVE (NEGATIVE); COLOR,URINE YELLOW (YELLOW); GLUCOSE,URINE NEGATIVE (NEGATIVE); KETONES,URINE NEGATIVE (NEGATIVE); LEUKOCYTE ESTERASE,URINE SMALL (NEGATIVE); NITRITE,URINE NEGATIVE (NEGATIVE); OCCULT BLOOD,URINE MODERATE (NEGATIVE); PH,URINE 7.5 (5.0-8.0); PROTEIN,URINE NEGATIVE (NEGATIVE); UROBILINOGEN,URINE 0.2 EU/dL (0.2-1.0)
[2025-01-08] MEDS: LORazepam 0.5 MG Tab PO ONE (02:25)
[2025-01-08 02:29] LABS: AMORPHOUS SEDIMENT,URINE FEW; BACTERIA,URINE RARE; EPITHELIAL CELLS,URINE RARE; MUCUS,URINE NOT SEEN; RBC,URINE 0-5 (0-5); WBC,URINE 0-5 (0-5)
== END 2025-01-08 03:40 | disposition home or self-care (01) ==
LOC: JP.ED 00:59
DX: I82.502 Chronic embolism and thrombosis of unspecified deep veins of left lower extremity (principal); L03.116 Cellulitis of left lower limb; I50.9 Heart failure, unspecified; N18.4 Chronic kidney disease, stage 4 (severe); E78.00 Pure hypercholesterolemia, unspecified; E11.22 Type 2 diabetes mellitus with diabetic chronic kidney disease; Z86.16 Personal history of COVID-19; Z88.8 Allergy status to other drugs, medicaments and biological substances; Z91.048 Other nonmedicinal substance allergy status; Z79.01 Long term (current) use of anticoagulants; Z79.899 Other long term (current) drug therapy; R22.42 Localized swelling, mass and lump, left lower limb
CPT/HCPCS: 36415; 71045; 80053; 81001; 85025; 85379; 86140; 93971; 99284; A9270

== ENCOUNTER 2025-01-10 11:38 | Emergency (ER) | payer MEDICARE, MEDICAID ==
[2025-01-10 12:30] LABS: BASOPHILS ABSOLUTE AUTO 0.03 K/uL (0.00-0.10); BASOPHILS PERCENT AUTO 0.7 % (0.1-1.3); EOSINOPHILS ABSOLUTE AUTO 0.07 K/uL (0.00-0.40); EOSINOPHILS PERCENT AUTO 1.6 % (0.0-5.4); HEMATOCRIT 29.2 % (38.4-49.7); HEMOGLOBIN 9.5 g/dL (12.9-16.9); IMMATURE GRAN PERCENT AUTO 0.2 % (0.0-0.7); LYMPHOCYTES ABSOLUTE AUTO 2.01 K/uL (0.8-3.3); LYMPHOCYTES PERCENT AUTO 44.7 % (11.4-47.7); MEAN CORPUSCULAR HEMOGLOBIN 28.7 pg (31.6-35.5); MEAN CORPUSCULAR HGB CONC 32.5 g/dL (31.6-35.5); MEAN CORPUSCULAR VOLUME 88.2 fL (81.4-99.0); MONOCYTES ABSOLUTE AUTO 0.36 K/uL (0.20-0.90); NEUTROPHILS ABSOLUTE AUTO 2.02 K/uL (1.0-7.6); NEUTROPHILS PERCENT AUTO 44.8 % (40.0-78.1); PLATELET COUNT,PLT 258 K/uL (130-375); RED BLOOD CELL COUNT 3.31 M/uL (4.14-5.76); WHITE BLOOD CELL COUNT,WBC 4.5 K/uL (3.2-11.0)
[2025-01-10 12:42] LABS: IMMATURE GRAN ABSOLUTE AUTO 0.01 K/uL (0.00-0.23)
[2025-01-10 12:57] LABS: CALCIUM 9.2 mg/dL (8.5-10.1); CREATININE 1.7 mg/dL (0.8-1.3); EST CRCL DRUG DOSING (CG) 40.86 mL/min; MAGNESIUM 1.6 mg/dL (1.8-2.4); POTASSIUM,K 4.4 mmol/L (3.6-5.2)
[2025-01-10 12:58] LABS: ANION GAP 13.4 mmol/L (5.0-14.0)
[2025-01-10 13:44] LABS: APPEARANCE,URINE CLEAR (CLEAR); BILIRUBIN,URINE NEGATIVE (NEGATIVE); COLOR,URINE YELLOW (YELLOW); GLUCOSE,URINE NEGATIVE (NEGATIVE); KETONES,URINE NEGATIVE (NEGATIVE); LEUKOCYTE ESTERASE,URINE TRACE (NEGATIVE); NITRITE,URINE NEGATIVE (NEGATIVE); OCCULT BLOOD,URINE NEGATIVE (NEGATIVE); PH,URINE 7.5 (5.0-8.0); PROTEIN,URINE NEGATIVE (NEGATIVE); UROBILINOGEN,URINE 0.2 EU/dL (0.2-1.0)
[2025-01-10 13:49] LABS: AMPHETAMINES SCREEN, URINE NEGATIVE (NEGATIVE); BARBITURATE SCREEN,URINE NEGATIVE (NEGATIVE); BENZODIAZEPINES SCREEN,URINE PRESUMPTIVE POSITIVE (NEGATIVE); METHADONE SCREEN, URINE NEGATIVE (NEGATIVE); METHAMPHETAMINES SCREEN, URINE NEGATIVE (NEGATIVE); OXYCODONE SCREEN,URINE NEGATIVE (NEGATIVE); PROPOXYPHENE SCREEN,URINE NEGATIVE (NEGATIVE); THC SCREEN,URINE 50 NG/ML NEGATIVE (NEGATIVE)
[2025-01-10 13:50] LABS: AMORPHOUS SEDIMENT,URINE NOT SEEN; BACTERIA,URINE NOT SEEN; EPITHELIAL CELLS,URINE NOT SEEN; MUCUS,URINE NOT SEEN; RBC,URINE 0-5 (0-5); WBC,URINE 0-5 (0-5)
== END 2025-01-10 14:40 | disposition home or self-care (01) ==
LOC: JP.ED 11:38
DX: F20.9 Schizophrenia, unspecified (principal); I50.9 Heart failure, unspecified; N18.9 Chronic kidney disease, unspecified; E11.22 Type 2 diabetes mellitus with diabetic chronic kidney disease; E78.00 Pure hypercholesterolemia, unspecified; Z88.6 Allergy status to analgesic agent; Z91.048 Other nonmedicinal substance allergy status; Z88.8 Allergy status to other drugs, medicaments and biological substances; Z79.01 Long term (current) use of anticoagulants; Z79.899 Other long term (current) drug therapy; Z86.16 Personal history of COVID-19
CPT/HCPCS: 36415; 80048; 80305-QW; 80307; 81001; 83735; 85025; 99284

== ENCOUNTER 2025-07-31 09:57 | Emergency (ER) | payer MEDICAID, MEDICARE, OTHER ==
[2025-07-31 10:25] LABS: APPEARANCE,URINE SLIGHTLY CLOUDY (CLEAR); GLUCOSE,URINE NEGATIVE (NEGATIVE); OCCULT BLOOD,URINE NEGATIVE (NEGATIVE)
[2025-07-31 10:35] LABS: SQUAMOUS EPITHELIAL CELLS,UR RARE /HPF; UROTHELIAL CELLS,URINE NOT SEEN /HPF
[2025-07-31 10:47] LABS: BASE EXCESS VENOUS 0.2 mm/L; BICARBONATE,VENOUS 24.8 mmol/L; O2 SATURATION VENOUS 65.6; OXYHEMOGLOBIN 63.8 %; PCO2 VENOUS 42.2 mm/Hg; PH,VENOUS 7.386 (7.350-7.450); TOTAL HEMOGLOBIN 11.6 g/dL (13.5-18.0)
[2025-07-31 10:49] LABS: BASOPHILS PERCENT AUTO 0.3 % (0.1-1.3); EOSINOPHILS ABSOLUTE AUTO 0.04 K/uL (0.00-0.40); EOSINOPHILS PERCENT AUTO 0.7 % (0.0-5.4); IMMATURE GRAN PERCENT AUTO 0.2 % (0.0-0.7); LYMPHOCYTES ABSOLUTE AUTO 1.04 K/uL (0.8-3.3); LYMPHOCYTES PERCENT AUTO 17.6 % (11.4-47.7); MONOCYTES ABSOLUTE AUTO 0.62 K/uL (0.20-0.90); MONOCYTES PERCENT AUTO 10.5 % (3.3-12.6); NEUTROPHILS ABSOLUTE AUTO 4.17 K/uL (1.0-7.6); NEUTROPHILS PERCENT AUTO 70.7 % (40.0-78.1); PLATELET COUNT,PLT 180 K/uL (130-375); RED BLOOD CELL COUNT 3.72 M/uL (4.14-5.76); WHITE BLOOD CELL COUNT,WBC 5.9 K/uL (3.2-11.0)
[2025-07-31 10:51] LABS: BASOPHILS ABSOLUTE AUTO 0.02 K/uL (0.00-0.10); IMMATURE GRAN ABSOLUTE AUTO 0.01 K/uL (0.00-0.23); PO2 VENOUS 37.6 mm/Hg
[2025-07-31 11:09] LABS: A/G RATIO 1.1 (1.2-2.2); ALANINE AMINOTRANSFERASE,ALT 12 U/L (12-78); ASPARTATE AMNIOTRANSFERASE,AST 26 U/L (15-37); BILIRUBIN TOTAL 0.6 mg/dL (0.2-1.0); BLOOD UREA NITROGEN,BUN 34 mg/dL (7-18); CARBON DIOXIDE,CO2 28 mmol/L (21-32); CHLORIDE,CL 109 mmol/L (100-108); CREATININE 2.1 mg/dL (0.8-1.3); ESTIMATED GFR 34 mL/min (>60); GLUCOSE RANDOM 126 mg/dL (74-106); POTASSIUM,K 4.6 mmol/L (3.6-5.2); PROTEIN TOTAL,TP 7.4 g/dL (6.4-8.2); SODIUM,NA 146 mmol/L (140-148)
== END 2025-07-31 15:20 | disposition home or self-care (01) ==
LOC: JP.ED 09:57
DX: R41.0 Disorientation, unspecified (principal); N39.0 Urinary tract infection, site not specified; J18.9 Pneumonia, unspecified organism; I50.9 Heart failure, unspecified; E78.00 Pure hypercholesterolemia, unspecified; K21.9 Gastro-esophageal reflux disease without esophagitis; E11.9 Type 2 diabetes mellitus without complications; Z88.8 Allergy status to other drugs, medicaments and biological substances; Z79.899 Other long term (current) drug therapy; Z86.16 Personal history of COVID-19
CPT/HCPCS: 36415; 70450; 71045; 80053; 81001; 82803; 83605; 85025; 87086; 87088; 87186; 96361; 96365; 99283; 99285; J0696; J7030

== ENCOUNTER 2025-08-16 10:23 | Emergency (ER) | payer OTHER ==
[2025-08-16] MEDS ORDERED: Sodium Chloride 0.9% 10 ML Syringe FLUSH PRN (11:13)
[2025-08-16] MEDS: Lactated Ringers 1,000 ML IV ONE ×2 (11:30→13:00)
[2025-08-16 11:34] LABS: BASOPHILS ABSOLUTE AUTO 0.03 K/uL (0.00-0.10); BASOPHILS PERCENT AUTO 0.6 % (0.1-1.3); EOSINOPHILS ABSOLUTE AUTO 0.03 K/uL (0.00-0.40); EOSINOPHILS PERCENT AUTO 0.6 % (0.0-5.4); IMMATURE GRAN PERCENT AUTO 0.4 % (0.0-0.7); LYMPHOCYTES ABSOLUTE AUTO 0.97 K/uL (0.8-3.3); LYMPHOCYTES PERCENT AUTO 19.5 % (11.4-47.7); MONOCYTES ABSOLUTE AUTO 0.28 K/uL (0.20-0.90); MONOCYTES PERCENT AUTO 5.6 % (3.3-12.6); NEUTROPHILS ABSOLUTE AUTO 3.64 K/uL (1.0-7.6); NEUTROPHILS PERCENT AUTO 73.3 % (40.0-78.1); PLATELET COUNT,PLT 318 K/uL (130-375); RED BLOOD CELL COUNT 2.82 M/uL (4.14-5.76); WHITE BLOOD CELL COUNT,WBC 5.0 K/uL (3.2-11.0)
[2025-08-16 11:37] LABS: IMMATURE GRAN ABSOLUTE AUTO 0.02 K/uL (0.00-0.23)
[2025-08-16 11:50] LABS: BLOOD UREA NITROGEN,BUN 36 mg/dL (7-18); CARBON DIOXIDE,CO2 32 mmol/L (21-32); CHLORIDE,CL 110 mmol/L (100-108); CREATININE 1.9 mg/dL (0.8-1.3); ESTIMATED GFR 38 mL/min (>60); GLUCOSE RANDOM 121 mg/dL (74-106); POTASSIUM,K 4.4 mmol/L (3.6-5.2); SODIUM,NA 146 mmol/L (140-148)
[2025-08-16 13:09] LABS: APPEARANCE,URINE CLEAR (CLEAR); GLUCOSE,URINE NEGATIVE (NEGATIVE); OCCULT BLOOD,URINE TRACE-INTACT (NEGATIVE)
[2025-08-16 13:24] LABS: SQUAMOUS EPITHELIAL CELLS,UR FEW /HPF
== END 2025-08-16 14:42 ==
LOC: JP.ED 10:23
DX: E86.0 Dehydration (principal); K21.9 Gastro-esophageal reflux disease without esophagitis; E78.00 Pure hypercholesterolemia, unspecified; E11.9 Type 2 diabetes mellitus without complications; Z88.8 Allergy status to other drugs, medicaments and biological substances; Z79.899 Other long term (current) drug therapy; Z86.16 Personal history of COVID-19
CPT/HCPCS: 36415; 76870; 80048; 81001; 83605; 85025; 93975; 96360; 96361; 99284; J7120

== ENCOUNTER 2025-10-05 19:08 | Emergency (ER) | payer MEDICARE, OTHER ==
[2025-10-05 19:46] LABS: BASE EXCESS VENOUS -0.6 mm/L; BASOPHILS PERCENT AUTO 0.2 % (0.1-1.3); BICARBONATE,VENOUS 23.8 mmol/L; EOSINOPHILS ABSOLUTE AUTO 0.03 K/uL (0.00-0.40); EOSINOPHILS PERCENT AUTO 0.6 % (0.0-5.4); IMMATURE GRAN PERCENT AUTO 0.2 % (0.0-0.7); LYMPHOCYTES ABSOLUTE AUTO 1.68 K/uL (0.8-3.3); LYMPHOCYTES PERCENT AUTO 33.7 % (11.4-47.7); MONOCYTES ABSOLUTE AUTO 0.33 K/uL (0.20-0.90); MONOCYTES PERCENT AUTO 6.6 % (3.3-12.6); NEUTROPHILS ABSOLUTE AUTO 2.93 K/uL (1.0-7.6); NEUTROPHILS PERCENT AUTO 58.7 % (40.0-78.1); O2 SATURATION VENOUS 75.6; OXYHEMOGLOBIN 73.4 %; PCO2 VENOUS 40.7 mm/Hg; PH,VENOUS 7.385 (7.350-7.450); PLATELET COUNT,PLT 218 K/uL (130-375); RED BLOOD CELL COUNT 3.74 M/uL (4.14-5.76); TOTAL HEMOGLOBIN 11.2 g/dL (13.5-18.0); WHITE BLOOD CELL COUNT,WBC 5.0 K/uL (3.2-11.0)
[2025-10-05 19:47] LABS: PO2 VENOUS 47.6 mm/Hg
[2025-10-05 19:48] LABS: BASOPHILS ABSOLUTE AUTO 0.01 K/uL (0.00-0.10); IMMATURE GRAN ABSOLUTE AUTO 0.01 K/uL (0.00-0.23)
[2025-10-05] MEDS ORDERED: Naloxone 0.4 MG/ML SDV IVPUSH PRN (20:08)
[2025-10-05 20:18] LABS: A/G RATIO 0.8 (1.2-2.2); ALANINE AMINOTRANSFERASE,ALT 12 U/L (12-78); ASPARTATE AMNIOTRANSFERASE,AST 19 U/L (15-37); BILIRUBIN TOTAL 0.4 mg/dL (0.2-1.0); BLOOD UREA NITROGEN,BUN 46 mg/dL (7-18); CARBON DIOXIDE,CO2 25 mmol/L (21-32); CHLORIDE,CL 109 mmol/L (100-108); CREATININE 2.0 mg/dL (0.8-1.3); EST CRCL DRUG DOSING (CG) 37.81 mL/min; ESTIMATED GFR 36 mL/min (>60); GLUCOSE RANDOM 121 mg/dL (74-106); POTASSIUM,K 4.5 mmol/L (3.6-5.2); PROTEIN TOTAL,TP 7.2 g/dL (6.4-8.2); SODIUM,NA 146 mmol/L (140-148); TROPONIN I HIGH SENSITIVITY 4.5 pg/mL (<=60.3)
[2025-10-05] MEDS: Amoxicillin/Clavulanate K 875-125 MG Tab PO ONE (20:40)
[2025-10-05] MEDS: fentaNYL 50 MCG/ML SDV IVPUSH ONE (20:56)
[2025-10-05] MEDS: Iopamidol 755 Mg/ML 100 ML Bottle IV SCH (21:22)
[2025-10-05] MEDS: Sodium Chloride 0.9% 10 ML Syringe FLUSH ONE (21:22)
== END 2025-10-05 22:29 | disposition home or self-care (01) ==
LOC: JP.ED 19:08
DX: J18.9 Pneumonia, unspecified organism (principal); I50.9 Heart failure, unspecified; E78.00 Pure hypercholesterolemia, unspecified; K21.9 Gastro-esophageal reflux disease without esophagitis; E11.9 Type 2 diabetes mellitus without complications; Z88.8 Allergy status to other drugs, medicaments and biological substances; Z79.899 Other long term (current) drug therapy; Z86.16 Personal history of COVID-19
CPT/HCPCS: 36415; 71045; 71275; 80053; 82803; 83880; 84484; 85025; 85379; 93005; 94640; 99284; A9270; J7040; Q9967; 93010

== ENCOUNTER 2025-10-07 12:00 | Emergency (ER) | payer MEDICARE, OTHER ==
[2025-10-07 13:35] LABS: BASOPHILS ABSOLUTE AUTO 0.03 K/uL (0.00-0.10); BASOPHILS PERCENT AUTO 0.6 % (0.1-1.3); EOSINOPHILS ABSOLUTE AUTO 0.03 K/uL (0.00-0.40); EOSINOPHILS PERCENT AUTO 0.6 % (0.0-5.4); IMMATURE GRAN ABSOLUTE AUTO 0.02 K/uL (0.00-0.23); IMMATURE GRAN PERCENT AUTO 0.4 % (0.0-0.7); LYMPHOCYTES ABSOLUTE AUTO 0.97 K/uL (0.8-3.3); LYMPHOCYTES PERCENT AUTO 18.3 % (11.4-47.7); MONOCYTES ABSOLUTE AUTO 0.51 K/uL (0.20-0.90); MONOCYTES PERCENT AUTO 9.6 % (3.3-12.6); NEUTROPHILS ABSOLUTE AUTO 3.73 K/uL (1.0-7.6); NEUTROPHILS PERCENT AUTO 70.5 % (40.0-78.1); PLATELET COUNT,PLT 212 K/uL (130-375); RED BLOOD CELL COUNT 3.74 M/uL (4.14-5.76); WHITE BLOOD CELL COUNT,WBC 5.3 K/uL (3.2-11.0)
[2025-10-07 13:54] LABS: A/G RATIO 0.7 (1.2-2.2); ALANINE AMINOTRANSFERASE,ALT 13 U/L (12-78); ASPARTATE AMNIOTRANSFERASE,AST 25 U/L (15-37); BILIRUBIN TOTAL 0.3 mg/dL (0.2-1.0); BLOOD UREA NITROGEN,BUN 62 mg/dL (7-18); CARBON DIOXIDE,CO2 27 mmol/L (21-32); CHLORIDE,CL 111 mmol/L (100-108); CREATININE 2.4 mg/dL (0.8-1.3); EST CRCL DRUG DOSING (CG) 28.31 mL/min; ESTIMATED GFR 29 mL/min (>60); GLUCOSE RANDOM 167 mg/dL (74-106); POTASSIUM,K 4.8 mmol/L (3.6-5.2); PROTEIN TOTAL,TP 7.4 g/dL (6.4-8.2); SODIUM,NA 148 mmol/L (140-148)
[2025-10-07 14:19] LABS: APPEARANCE,URINE SLIGHTLY CLOUDY (CLEAR); GLUCOSE,URINE NEGATIVE (NEGATIVE); OCCULT BLOOD,URINE NEGATIVE (NEGATIVE)
[2025-10-07 14:25] LABS: SQUAMOUS EPITHELIAL CELLS,UR FEW /HPF; UROTHELIAL CELLS,URINE NOT SEEN /HPF
== END 2025-10-07 16:25 | disposition home or self-care (01) ==
LOC: JP.ED 12:00
DX: N39.0 Urinary tract infection, site not specified (principal); E86.0 Dehydration; K21.9 Gastro-esophageal reflux disease without esophagitis; E78.00 Pure hypercholesterolemia, unspecified; E11.9 Type 2 diabetes mellitus without complications; Z88.8 Allergy status to other drugs, medicaments and biological substances; Z79.899 Other long term (current) drug therapy; Z86.16 Personal history of COVID-19
CPT/HCPCS: 36415; 80053; 81001; 85025; 96360; 96361; 99284-25; J7030

== ENCOUNTER 2025-10-09 10:14 | Emergency (ER) | payer MEDICARE, OTHER ==
[2025-10-09 13:40] LABS: BASOPHILS ABSOLUTE AUTO 0.03 K/uL (0.00-0.10); BASOPHILS PERCENT AUTO 0.6 % (0.1-1.3); EOSINOPHILS ABSOLUTE AUTO 0.06 K/uL (0.00-0.40); EOSINOPHILS PERCENT AUTO 1.3 % (0.0-5.4); IMMATURE GRAN PERCENT AUTO 0.4 % (0.0-0.7); LYMPHOCYTES ABSOLUTE AUTO 1.22 K/uL (0.8-3.3); LYMPHOCYTES PERCENT AUTO 25.8 % (11.4-47.7); MONOCYTES ABSOLUTE AUTO 0.40 K/uL (0.20-0.90); MONOCYTES PERCENT AUTO 8.5 % (3.3-12.6); NEUTROPHILS ABSOLUTE AUTO 3.00 K/uL (1.0-7.6); NEUTROPHILS PERCENT AUTO 63.4 % (40.0-78.1); PLATELET COUNT,PLT 257 K/uL (130-375); RED BLOOD CELL COUNT 3.34 M/uL (4.14-5.76); WHITE BLOOD CELL COUNT,WBC 4.7 K/uL (3.2-11.0)
[2025-10-09 13:42] LABS: IMMATURE GRAN ABSOLUTE AUTO 0.02 K/uL (0.00-0.23)
[2025-10-09 14:04] LABS: A/G RATIO 0.8 (1.2-2.2); ALANINE AMINOTRANSFERASE,ALT 14 U/L (12-78); ASPARTATE AMNIOTRANSFERASE,AST 34 U/L (15-37); BILIRUBIN TOTAL 0.4 mg/dL (0.2-1.0); BLOOD UREA NITROGEN,BUN 47 mg/dL (7-18); CARBON DIOXIDE,CO2 29 mmol/L (21-32); CHLORIDE,CL 116 mmol/L (100-108); CREATININE 1.9 mg/dL (0.8-1.3); EST CRCL DRUG DOSING (CG) 35.76 mL/min; ESTIMATED GFR 38 mL/min (>60); GLUCOSE RANDOM 103 mg/dL (74-106); POTASSIUM,K 5.0 mmol/L (3.6-5.2); PROTEIN TOTAL,TP 7.2 g/dL (6.4-8.2); SODIUM,NA 154 mmol/L (140-148)
[2025-10-09 15:28] LABS: BLOOD UREA NITROGEN,BUN 45.0 mg/dL (7-18); CARBON DIOXIDE,CO2 29.0 mmol/L (21-32); CHLORIDE,CL 118.0 mmol/L (100-108); CREATININE 1.8 mg/dL (0.8-1.3); EST CRCL DRUG DOSING (CG) 37.74 mL/min; ESTIMATED GFR 41.0 mL/min (>60); GLUCOSE RANDOM 115.0 mg/dL (74-106); POTASSIUM,K 4.4 mmol/L (3.6-5.2); SODIUM,NA 154.0 mmol/L (140-148)
== END 2025-10-09 16:56 | disposition home or self-care (01) ==
LOC: JP.ED 10:14
DX: J18.9 Pneumonia, unspecified organism (principal); E87.0 Hyperosmolality and hypernatremia; I50.9 Heart failure, unspecified; N18.9 Chronic kidney disease, unspecified; E78.00 Pure hypercholesterolemia, unspecified; Z86.16 Personal history of COVID-19; Z88.8 Allergy status to other drugs, medicaments and biological substances; Z91.048 Other nonmedicinal substance allergy status; Z79.899 Other long term (current) drug therapy; Z79.01 Long term (current) use of anticoagulants
CPT/HCPCS: 36415; 71045; 80048; 80053; 85025; 94640; 96361; 96365; 99285; A9270; J0696; J7030; 99284